=== PATIENT | female | born 2000 | race African-American/Black ===

== ENCOUNTER 2023-05-12 13:02 | Emergency (ER) | payer SELFPAY ==
[~2023-05-12] VITALS: Ht 157.5 cm; Wt 61.2 kg
[2023-05-12 13:02] VITALS: BP_SYST 102; PULSE 76; RESP 18; TEMP 97.9; O2SAT 98
[2023-05-12] MEDS ORDERED: PRED20TA PO (14:30)
[2023-05-12] MEDS ORDERED: PROM473S6 PO (14:30)
[2023-05-12] MEDS ORDERED: IBUP-1969 PO (14:33)
[2023-05-12] MEDS ORDERED: D-ME120S20 PO (14:33)
[2023-05-12 14:48] VITALS: BP_SYST 102; PULSE 76; RESP 18; TEMP 97.9; O2SAT 98
== END 2023-05-12 14:48 | disposition home or self-care (01) ==
LOC: SED 13:02
DX: J45.909 Unspecified asthma, uncomplicated (principal); R05.9 Cough, unspecified; R09.81 Nasal congestion; Z88.0 Allergy status to penicillin; Z79.899 Other long term (current) drug therapy
CPT/HCPCS: 99283